=== PATIENT | female | born 1965 | race Caucasian/White ===

== ENCOUNTER → 2017-11-25 | Outpatient (CLI) | payer BC ==
[~2017-11-25] MED LIST: AMOXICILLIN875 MG PO; CELEXA40 MG PO; FLEXERIL PO; IBUPROFEN 800800 M1 PO; NORCO 5-325 TA1 EACH PO; PERCOCET 5-3251 EACH PO
--- NOTE | 2017-11-25 11:20 | 2DMMODE ---
[place] [address] 2 D/M-MODE ECHOCARDIOGRAM Name: JUSTO MILLER Room: [facility]#: [id number] Admission: 11/25/17 Attend Phys: Shelby Gallo Discharge: Date of : 61 Date of Service: 11/25/17 1120 Report #: [id number] THIS REPORT FOR: //name// APPROVED REPORT Study performed: 11/25/2017 10:04:25 EXAM: Comprehensive 2D, Doppler, and color-flow Echocardiogram Patient Location: Out-Patient Status: routine BSA: 1.84 HR: 70 bpm BP: 102/78 mmHg Other Information Study Quality: Good Indications Dyspnea 2D Dimensions LVEF(%): 66.43 (>50%) IVSd: 9.81 (7-11mm) LVOT Diam: 20.00 (18-24mm) LVDd: 39.92 mm PWd: 8.72 (7-11mm) Ascending Ao: 34.03 (22-36mm) LVDs: 25.47 (25-40mm) Aortic Root: 29.70 mm Li's LVEF: 66.43 % Volumes Left Atrial Volume (Systole) LA ESV Index: 13.00 mL/m2 Aortic Valve AoV Peak Cristobal.: 1.00 m/s AO Peak Gr.: 3.97 mmHg LVOT Max P.92 mmHg AO Mean Gr.: 2.04 mmHg LVOT Mean P.62 mmHg LVOT Max V: 0.99 m/s AO V2 VTI: 18.86 cm LVOT Mean V: 0.56 m/s TAYLA (VTI): 3.29 cm2 LVOT V1 VTI: 19.76 cm Mitral Valve E/A Ratio: 0.99 MV Decel. Time: 227.[place] [address] 2 D/M-MODE ECHOCARDIOGRAM Name: JUSTO MILLER Room: [facility]#: [id number] Admission: 11/25/17 Attend Phys: Shelby Gallo Discharge: Date of : 61 Date of Service: 11/25/17 1120 Report #: [id number] MV E Max Cristobal.: 0.57 m/s MV PHT: 66.09 ms MVA (PHT): 3.33 cm2 TDI E/Lateral E': 6.33 E/Medial E': 6.33 Medial E' Cristobal.: 0.09 m/s Lateral E' Cristobal.: 0.09 m/s Pulmonary Valve PV Peak Cristobal.: 0.83 m/s PV Peak Gr.: 2.76 mmHg Tricuspid Valve TR Peak Gr.: 10.89 mmHg RVSP: 15.89 mmHg Left Ventricle The left ventricle is normal size. There is normal LV segmental wall motion. There is normal left ventricular wall thickness. Left ventricular systolic function is normal. The left ventricular ejection fraction is within the normal range. LVEF is 55-60%. The left ventricular diastolic function is normal. Right Ventricle The right ventricle is normal size. The right ventricular systolic function is normal. Atria The left atrium size is normal. The right atrium size is normal. Aortic Valve The aortic valve is normal in structure. No aortic regurgitation is present. There is no aortic valvular stenosis. Mitral Valve The mitral valve is normal in structure. Trace mitral regurgitation. No evidence of mitral valve stenosis. Tricuspid Valve The tricuspid valve is normal in structure. Trace tricuspid regurgitation. The RVSP is 20_ mmHg. Trace tricuspid regurgitation. Pulmonic Valve The pulmonary valve is normal in structure. There is no pulmonic [place] [address] 2 D/M-MODE ECHOCARDIOGRAM Name: JUSTO MILLER Room: [facility]#: [id number] Admission: 11/25/17 Attend Phys: Shelby Gallo Discharge: Date of : 61 Date of Service: 11/25/17 1120 Report #: [id number] Great Vessels The aortic root is normal in size. IVC is normal in size and collapses with >50% inspiration Pericardium There is no pericardial effusion. <Conclusion> Left ventricular systolic function is normal. The left ventricular ejection fraction is within the normal range. <ELECTRONICALLY SIGNED> By: Hever Bazan MD, FACC 11/25/17 1120 19 19 Hever Bazan MD, FACC /INF
== END ==
LOC: M.CRD 09:49
DX: Q25.79 Other congenital malformations of pulmonary artery (principal)

== ENCOUNTER 2021-09-02 20:07 | Emergency (ER) | payer OTHER ==
[~2021-09-02] VITALS: Ht 170.2 cm; Wt 70.8 kg
[2021-09-02] MEDS ORDERED: DIAZEPAM 2MG TAB2 MG PO (20:24)
[2021-09-02 21:05] LABS: ABSOLUTE LYMPHOCYTES 1.5 thou/uL (0.8-5.3); ABSOLUTE MONOCYTES 0.4 thou/uL (0.0-1.2); BASOPHILS 1.5 %; EOSINOPHILS 0.9 %; HEMOGLOBIN 14.3 gm/dL (12.0-15.0); LYMPHOCYTES 51.6 %; MCH 30.4 pg (26.0-34.0); MCHC 33.9 g/dL (28.0-37.0); MCV 89.6 fL (80.0-100.0); MONOCYTES 12.4 %; MPV 7.7 fl. (7.2-11.1); NUCLEATED RBCS 0 /100WBC; PLATELET COUNT* 162 thou/uL (150-400); POLYS 33.6 %; RBC 4.69 mil/uL (4.20-5.00); RDW-CV 13.5 % (10.5-14.5)
[2021-09-02 21:13] LABS: CALCIUM 8.5 mg/dL (8.5-10.1); CREATININE 1.1 mg/dL (0.6-1.3); POTASSIUM 3.3 mmol/L (3.5-5.1)
[2021-09-02 21:29] LABS: ALBUMIN 3.5 g/dL (3.4-5.0); MAGNESIUM 2.1 mg/dL (1.8-2.4); TOTAL BILIRUBIN 0.4 mg/dL (<0.1-1.0); TOTAL PROTEIN 7.3 g/dL (6.4-8.2)
[2021-09-02] MEDS ORDERED: AUGMENTIN 875-1 EACH PO (21:59)
[2021-09-02] MEDS ORDERED: PROAIR HFA8.5 GM INH (21:59)
[2021-09-02 22:26] VITALS: BP 126/82
--- NOTE | 2021-09-04 09:30 | EKG ---
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 : [id number] Requested By: Riddhi Macias Order Number: [id number] MD: Hever Bazan Measurements Intervals [place] Rate: 74 P: 32 TX: 125 QRS: -9 QRSD: 102 T: 32 QT: 392 QTc: 435 Interpretive Statements Sinus rhythm RSR' in V1 or V2, right VCD or RVH Compared to ECG 07/26/2014 15:39:26 RSR' in V1 or V2 now present Electronically Signed On 09-04-2021 9:30:40 [employer] by Hever Bazan [email or web address] <ELECTRONICALLY SIGNED> By: Hever Bazan MD, FACC 09/04/21 0930 18 18 Hever Bazan MD, [facility] /EPI
== END 2021-09-02 22:27 | disposition home or self-care (01) ==
LOC: M.ERS 20:07
PROVIDERS: Emergency Medicine
DX: U07.1 COVID-19 (principal); J12.82 Pneumonia due to coronavirus disease 2019; D70.9 Neutropenia, unspecified; Z90.711 Acquired absence of uterus with remaining cervical stump; Z98.51 Tubal ligation status; Z79.899 Other long term (current) drug therapy